=== PATIENT | male | born 1990 | race Hispanic/Latino ===

== ENCOUNTER 2021-02-15 17:32 | Emergency (ER) | payer OTHER ==
--- OUTSIDE RECORDS SUMMARY | 2021-02-15 17:35 | XMS REPORT | Continuity of Care Document ---
:1990 Author Organization [facility] t Address [address] [place] [address] Care Team Providers Name Role Phone Unavailable Unavailable Unavailable Payers Payer Name Policy Type Policy Number Effective Date Expiration Date S ource Problems This patient has no known problems. Allergies, Adverse Reactions, Alerts Allergy Allergy Status Severity Reaction(s) Onset Inactive Treating Comm ents Source Name Type Date Date Clinician No Known DA Active U 2017- STANLEY Jain Allergsari 10-13 [facility] Medications This patient has no known medications. Procedures This patient has no known procedures. Results This patient has no known results.
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
[2021-02-15 18:24] VITALS: TEMP 98.7; O2SAT 99
[2021-02-15 18:26] VITALS: BP 152/98
== END 2021-02-15 18:20 | disposition home or self-care (01) ==
LOC: ER 17:32
DX: G89.11 Acute pain due to trauma (principal); V59.40XA Driver of pick-up truck or van injured in collision with unspecified motor vehicles in traffic accident, initial encounter
CPT/HCPCS: 99283